=== PATIENT | female | born 1995 | race African-American/Black ===

== ENCOUNTER 2017-01-17 15:21 | Observation (INO) | payer OTHER ==
[~2017-01-17 15:21] MED LIST: IBUP-232 PO; PROM25SU8 PO
[2017-01-17] MEDS ORDERED: ACETAMINOPHEN 325 MG TAB PO ONE (16:15)
[2017-01-17] MEDS ORDERED: ONDANSETRON HCL 4 MG/2 ML VIAL IV ONE (16:15)
[2017-01-17] MEDS ORDERED: ONDANSETRON ODT 4 MG TAB PO ONE (16:30)
--- NOTE | 2017-01-17 16:30 | PD ---
HPI Chief Complaint Abdominal pain, vaginal spotting Date Seen: January 17, 2017 Time Seen: 16:10 Travel History International Travel<30 Days: No Contact w/Intl Traveler<30Days: No Known Affected Area: No History of Present Illness HPI Patient is a 21-year-old at 23 weeks and 2 days who presents with 1 day of progressively worsening right upper quadrant pain and vaginal spotting. Patient reports that she woke up this morning with right upper quadrant pain and some vaginal spotting. She laid down, and noticed that the pain seemed to be getting progressively worse. Patient reports that the pain is currently a 7 out of 10, but at its worst it was almost a 9 out of 10. Patient describes the pain as stabbing and radiating to her back and associated with some chest tightness. Patient reports that her KASIA of 05/14/17 is from an ultrasound performed 2 weeks ago when she presented to a hospital in [place], where they also diagnosed her with gallstones based on ultrasound. They recommended that she get an OB provider and a general surgeon referral. She has been unable to find an OB provider. She denies any contractions, leakage of fluid. She endorses movement. She also endorses some nausea, some orthostatic lightheadedness, toothache and associated headache. She denies any changes in her vision, swelling of her extremities, chest pain, shortness of breath, fever , chills, dysuria. Patient endorses nausea. Para: 3 : 5 Miscarriage: 1 History Past Medical History Narrative Medical Gallstones diagnosed on ultrasound 2 weeks ago. Obstetric History Obstetric History Patient reports that her first was delivered at 37 weeks via C- section because there was a cord around the neck that was restricting baby's oxygen supply with her contractions. She had another delivery at 37 weeks by C- section. And then another delivery at 34 weeks by for labor. She also had 1 miscarriage at 8 weeks. Past Surgical History Narrative Surgical x3 Surgical History: No Previous Surgery Family History Narrative Family History HTN and DM on both sides of her family Family History: Negative Social History Narrative Social History Pt reports living with her friend. Alcohol Use: No Tobacco Use: No Substance Abuse: No Allergies-Medications (Allergen,Severity, Reaction): Coded Allergies: Abilify (Verified Allergy, Unknown, VOMITING, 02/26/16) Home Meds Active Scripts Nitrofurantoin Monohydrate Macrocrystals (Macrobid)100 Mg [id number] Mg PO BID #12 CAP Ref 0 Prov:Peyton Cardenas MD R2 01/18/17 Ibuprofen (Motrin)600 Mg [id number] Mg PO QID #21 TAB GIVE WITH FOOD Prov:Leno Curtis MD 10/09/15 Promethazine Hcl 25 Mg Tab25 Mg PO Q6H PRN (NAUSEA OR VOMITING) #10 TAB FOR NAUSEA/VOMITING Prov:Leno Curtis MD 10/09/15 Review of Systems General / Constitutional: No: Fever, Chills HENT: Headaches, Dental Difficulties Cardiovascular: No: Chest Pain or Discomfort, Edema Respiratory: No: Short of Breath Gastrointestinal: Nausea, Abdominal Pain Genitourinary: Vaginal Bleeding, No: Dysuria Musculoskeletal: No: Cramping, Edema Physical Exam Narrative GENERAL: Well-nourished, well-developed patient. SKIN: Warm and dry. HEAD: Normocephalic and atraumatic. EYES: No scleral icterus. No injection or drainage. ENT: No nasal drainage noted. Mucous membranes pink. Airway patent. No erythema , flutuance, NECK: Supple, trachea midline. No JVD. CARDIOVASCULAR: Regular rate and rhythm without murmurs, gallops, or rubs. RESPIRATORY: Breath sounds equal bilaterally. No accessory muscle use. ABDOMEN/GI: Abdomen soft, non-tender, bowel sounds present, no rebound, no guarding Gravid to 23 weeks size GENITOURINARY: External Genitalia: intact and normal in appearance BUS glands: [-] Cervix: [-] Dilatation: [-] Effacement: [-] Station: [-] Presentation: [-] Membranes: [intact or ruptured] Uterine Contractions: [-] FHT's: Category: [-] Baseline: [-] Reactive: [-] Variability: [-] Decels: [-] EXTREMITIES: No cyanosis or edema. BACK: Nontender without obvious deformity. + right-sided CVA tenderness. NEUROLOGICAL: Awake and alert. Motor and sensory grossly within normal limits. Five out of 5 muscle strength in all muscle groups. Normal speech. Data Data Orders Vital Signs (Adult) .ON ADMISSION (01/17/17 16:15) ^ Labor Status (01/17/17 16:15) Urinalysis - C+S If Indicated (01/17/17 16:15) ^ Hydration (01/17/17 16:15) Acetaminophen (Tylenol) (01/17/17 16:15) Ondansetron Inj (Zofran Inj) (01/17/17 16:15) MDM Plan Patient is a 21-year-old at 23 weeks and 2 days who presents with 1 day of progressively worsening right upper quadrant pain and vaginal spotting. 1. Abdominal pain with associated nausea - differential diagnosis includes -induced cholestasis, pre-existing gallstones, pyelonephritis, round ligament pain Monitor vital signs heart rate reassuring in the 140s; re-checked with bedside US. noted to have bradycardia/decel's to FHR in 60's, then back to normal 120s-140s. Thus, will place in observation for monitoring overnight and to be see by MFM specialists in the morning. Monitor labor status Encourage by mouth hydration Tylenol 650 mg by mouth 1 Zofran 4 mg ODT 1 --UA remarkable for moderate leuk est, 6 WBCs, moderate bacteria, culture indicated; in addition to + right-sided CVA tenderness on exam, will treat likely pyelonephritis with Ceftriaxone 1g IV q24h 2. vaginal spotting - most likely physiologic Vaginal exam - closed. No previa on bedside US. DW Dr. Chandler Scripts Nitrofurantoin Monohydrate Macrocrystals (Macrobid)100 Mg [id number] Mg PO BID #12 CAP Ref 0 Prov:Peyton Cardenas MD R2 01/18/17 Destin Jamil MD R1 January 17, 2017 16:30
[2017-01-17 16:45] LABS: BACTERIA, URINE MOD /hpf; BLOOD, URINE NEG (NEG); COMMENT (UR) CULTURE INDICATED; CULTURE IF INDICATED CULTURE INDICATED; GLUCOSE,URINE NEG (NEG); HYALINE CAST, URINE 1 /lpf (RARE); KETONE, URINE NEG (NEG); NITRITE,URINE NEG (NEG); SQUAMOUS EPITHELIAL CELL URINE 17 /hpf (0-5); URINE COLOR YELLOW (YELLW/STRAW)
[2017-01-17] MEDS ORDERED: ACETAMINOPHEN 325 MG TAB PO PRN (17:45)
[2017-01-17] MEDS ORDERED: IBUPROFEN 600 MG TAB PO PRN (17:45)
[2017-01-17] MEDS ORDERED: ONDANSETRON HCL 4 MG/2 ML VIAL IV PRN (17:45)
[2017-01-17] MEDS ORDERED: oxyCODONE/ACETAMINOPHEN 5 MG/325 MG TAB PO PRN (17:45)
--- NOTE | 2017-01-17 17:54 | PD ---
HPI Chief Complaint abdominal pain Date Seen: January 17, 2017 Time Seen: 16:10 Travel History International Travel<30 Days: No Contact w/Intl Traveler<30Days: No Known Affected Area: No History of Present Illness HPI Patient is a 21-year-old at 23 weeks and 2 days who presents with 1 day of progressively worsening right upper quadrant pain and vaginal spotting. Patient reports that she woke up this morning with right upper quadrant pain and some vaginal spotting. She laid down, and noticed that the pain seemed to be getting progressively worse. Patient reports that the pain is currently a 7 out of 10, but at its worst it was almost a 9 out of 10. Patient describes the pain as stabbing and radiating to her back and associated with some chest tightness. Patient reports that her KASIA of 05/14/17 is from an ultrasound performed 2 weeks ago when she presented to a hospital in [place], where they also diagnosed her with gallstones based on ultrasound. They recommended that she get an OB provider and a general surgeon referral. She has been unable to find an OB provider. She denies any contractions, leakage of fluid. She endorses movement. She also endorses some nausea, some orthostatic lightheadedness, toothache and associated headache. She denies any changes in her vision, swelling of her extremities, chest pain, shortness of breath, fever , chills, dysuria. Patient endorses some nausea. Para: 3 : 5 Miscarriage: 1 History Past Medical History Narrative Medical Gallstones diagnosed on ultrasound 2 weeks ago. Obstetric History Obstetric History Patient reports that her first was delivered at 37 weeks via C- section because there was a cord around the neck that was restricting baby's oxygen supply with her contractions. She had another delivery at 37 weeks by C- section. And then another delivery at 34 weeks by for labor. She also had 1 miscarriage at 8 weeks. Past Surgical History Narrative Surgical x3 Family History Narrative Family History HTN and DM on both sides of her family Social History Narrative Social History Pt reports living with her friend. Alcohol Use: No Tobacco Use: No Substance Abuse: No Allergies-Medications (Allergen,Severity, Reaction): Coded Allergies: Abilify (Verified Allergy, Unknown, VOMITING, 02/26/16) Home Meds Active Scripts Ibuprofen (Motrin)600 Mg [id number] Mg PO QID #21 TAB GIVE WITH FOOD Prov:Leno Curtis MD 10/09/15 Promethazine Hcl 25 Mg Tab25 Mg PO Q6H PRN (NAUSEA OR VOMITING) #10 TAB FOR NAUSEA/VOMITING Prov:Leno Curtis MD 10/09/15 Review of Systems General / Constitutional: No: Fever, Chills, Other Eyes: No: Blurred Vision, Visual changes, Photophobia HENT: Headaches, Dental Difficulties, Lightheadedness (othrostatic) Cardiovascular: No: Chest Pain or Discomfort, Edema Respiratory: No: Short of Breath Gastrointestinal: Nausea, Abdominal Pain, No: Vomiting, Diarrhea Genitourinary: No: Dysuria Musculoskeletal: No: Cramping, Edema Neurologic: No: Headache Endocrine: No: Heat Intolerance, Cold Intolerance Physical Exam AF and VSS and wnl Narrative GENERAL: Well-nourished, well-developed patient. SKIN: Warm and dry. HEAD: Normocephalic and atraumatic. EYES: No scleral icterus. No injection or drainage. ENT: No nasal drainage noted. Mucous membranes pink. Airway patent. No erythema , flutuance, NECK: Supple, trachea midline. No JVD. CARDIOVASCULAR: Regular rate and rhythm without murmurs, gallops, or rubs. RESPIRATORY: Breath sounds equal bilaterally. No accessory muscle use. ABDOMEN/GI: Abdomen soft, non-tender, bowel sounds present, no rebound, no guarding Gravid to 23 weeks size GENITOURINARY: External Genitalia: intact and normal in appearance Cervix: [mid-position] Dilatation: [closed] Effacement: [thick] Membranes: [intact] Uterine Contractions: [none] FHT's: assessed by bedside US: showed intermittent, self-resolving bradycardia/ decel's to 60's bpm, then came back up to 120s to 140s. EXTREMITIES: No cyanosis or edema. BACK: Nontender without obvious deformity. + right-sided CVA tenderness. NEUROLOGICAL: Awake and alert. Motor and sensory grossly within normal limits. Five out of 5 muscle strength in all muscle groups. Normal speech. Data Data Vital Signs Reviewed: Yes Orders Vital Signs (Adult) .ON ADMISSION (01/17/17 16:15) ^ Labor Status (01/17/17 16:15) Urinalysis - C+S If Indicated (01/17/17 16:15) ^ Hydration (01/17/17 16:15) Acetaminophen (Tylenol) (01/17/17 16:15) Ondansetron Inj (Zofran Inj) (01/17/17 16:15) Ondansetron Odt (Zofran Odt) (01/17/17 16:30) Ob Poc Ultrasound (01/17/17 ) Urine Culture (01/17/17 15:40) Ob (2e) Additional Admit Info (01/17/17 17:10) Nitrofurantoin Monohyd Macrocr (Macrobid (01/17/17 18:00) Ceftriaxone Inj (Rocephin Inj) (01/17/17 18:00) Place In Observation (01/17/17 ) ^ Insert Iv (01/17/17 17:27) Diet Regular Basic (01/17/17 Dinner) Complete Blood Count With Diff (01/17/17 17:30) Comprehensive Metabolic Panel (01/17/17 17:30) Code Status (01/17/17 17:30) Vital Signs (Adult) .Per protocol (01/17/17 17:30) Activity Oob Ad Christine (01/17/17 17:30) Heart (01/17/17 17:30) Ob/Psych Drug Screen, Urine (01/17/17 17:34) Acetaminophen (Tylenol) (01/17/17 17:45) Ibuprofen (Motrin) (01/17/17 17:45) Oxycodone-Acetamin 5-325 Mg (Percocet (01/17/17 17:45) Oxycodone-Acetamin 5-325 Mg (Percocet (01/17/17 17:45) Ondansetron Inj (Zofran Inj) (01/17/17 17:45) Fentanyl Inj (Fentanyl Inj) (01/17/17 17:45) Labs Laboratory Tests Test 01/17/17 15:40 Urine Color YELLOW Urine Turbidity HAZY Urine pH 8.0 Urine Specific [place] 1.016 Urine Protein TRACE Urine Glucose (UA) NEG Urine Ketones NEG Urine Occult Blood NEG Urine Nitrite NEG Urine Bilirubin NEG Urine Urobilinogen LESS THAN 2.0 Urine Leukocyte Esterase MOD Urine RBC 1 Urine WBC 6 Urine Squamous Epithelial 17 Cells Urine Bacteria MOD Urine Hyaline Casts 1 Microscopic Urinalysis Comment CULTURE INDICATED Date/Time Procedure Status Source Growth 01/17/17 15:40 Urine Culture Received Urine Clean Catch Pending MDM Plan Patient is a 21-year-old at 23 weeks and 2 days who presents with 1 day of progressively worsening right upper quadrant pain and vaginal spotting. 1. Abdominal pain with associated nausea - differential diagnosis includes -induced cholestasis, pre-existing gallstones, pyelonephritis, round ligament pain Monitor vital signs heart rate reassuring in the 140s; re-checked with bedside US. noted to have bradycardia/decel's to FHR in 60's, then back to normal 120s-140s. Thus, will place in observation for monitoring overnight and to be see by MFM specialists in the morning. Monitor labor status Encourage by mouth hydration Tylenol 650 mg by mouth 1 Zofran 4 mg ODT 1 --UA remarkable for moderate leuk est, 6 WBCs, moderate bacteria, culture indicated; in addition to + right-sided CVA tenderness on exam, will treat likely pyelonephritis with Ceftriaxone 1g IV q24h, which is another indication for observation overnight. 2. vaginal spotting - most likely physiologic Vaginal exam - closed. No previa on bedside US. DW Dr. Ramesh Jamil,Destin Loving MD R1 January 17, 2017 17:54
--- NOTE | 2017-01-17 17:55 | HHI.HP ---
History & Physical H&P HPI HPI Chief Complaint Abdominal pain, vaginal spotting Date Seen: January 17, 2017 Time Seen: 16:10 Travel History International Travel<30 Days: No Contact w/Intl Traveler<30Days: No Known Affected Area: No History of Present Illness HPI Patient is a 21-year-old at 23 weeks and 2 days who presents with 1 day of progressively worsening right upper quadrant pain and vaginal spotting. Patient reports that she woke up this morning with right upper quadrant pain and some vaginal spotting. She laid down, and noticed that the pain seemed to be getting progressively worse. Patient reports that the pain is currently a 7 out of 10, but at its worst it was almost a 9 out of 10. Patient describes the pain as stabbing and radiating to her back and associated with some chest tightness. Patient reports that her KASIA of 05/14/17 is from an ultrasound performed 2 weeks ago when she presented to a hospital in [place], where they also diagnosed her with gallstones based on ultrasound. They recommended that she get an OB provider and a general surgeon referral. She has been unable to find an OB provider. She denies any contractions, leakage of fluid. She endorses movement. She also endorses some nausea, some orthostatic lightheadedness, toothache and associated headache. She denies any changes in her vision, swelling of her extremities, chest pain, shortness of breath, fever , chills, dysuria. Patient endorses nausea. Para: 3 : 5 Miscarriage: 1 History (Limited) History Past Medical History Narrative Medical Gallstones diagnosed on ultrasound 2 weeks ago. Obstetric History Obstetric History Patient reports that her first was delivered at 37 weeks via C- section because there was a cord around the neck that was restricting baby's oxygen supply with her contractions. She had another delivery at 37 weeks by C- section. And then another delivery at 34 weeks by for labor. She also had 1 miscarriage at 8 weeks. Past Surgical History Narrative Surgical x3 Surgical History: No Previous Surgery Family History Narrative Family History HTN and DM on both sides of her family Family History: Negative Social History Narrative Social History Pt reports living with her friend. Alcohol Use: No Tobacco Use: No Substance Abuse: No Allergies-Medications Allergies-Medications (Allergen,Severity, Reaction): Coded Allergies: Abilify (Verified Allergy, Unknown, VOMITING, 02/26/16) Home Meds Active Scripts Ibuprofen (Motrin)600 Mg [id number] Mg PO QID #21 TAB GIVE WITH FOOD Prov:Leno Curtis MD 10/09/15 Promethazine Hcl 25 Mg Tab25 Mg PO Q6H PRN (NAUSEA OR VOMITING) #10 TAB FOR NAUSEA/VOMITING Prov:Leno Curtis MD 10/09/15 ROS Review of Systems General / Constitutional: No: Fever, Chills HENT: Headaches, Dental Difficulties Cardiovascular: No: Chest Pain or Discomfort, Edema Respiratory: No: Short of Breath Gastrointestinal: Nausea, Abdominal Pain Genitourinary: Vaginal Bleeding, No: Dysuria Musculoskeletal: No: Cramping, Edema Physical Exam Physical Exam Narrative GENERAL: Well-nourished, well-developed patient. SKIN: Warm and dry. HEAD: Normocephalic and atraumatic. EYES: No scleral icterus. No injection or drainage. ENT: No nasal drainage noted. Mucous membranes pink. Airway patent. No erythema , flutuance, NECK: Supple, trachea midline. No JVD. CARDIOVASCULAR: Regular rate and rhythm without murmurs, gallops, or rubs. RESPIRATORY: Breath sounds equal bilaterally. No accessory muscle use. ABDOMEN/GI: Abdomen soft, non-tender, bowel sounds present, no rebound, no guarding Gravid to 23 weeks size GENITOURINARY: External Genitalia: intact and normal in appearance Cervix: [mid-position] Dilatation: [closed] Effacement: [thick] Membranes: [intact] Uterine Contractions: [none] FHT's: assessed by bedside US: showed intermittent, self-resolving bradycardia/ decel's to 60's bpm, then came back up to 120s to 140s. EXTREMITIES: No cyanosis or edema. BACK: Nontender without obvious deformity. + right-sided CVA tenderness. NEUROLOGICAL: Awake and alert. Motor and sensory grossly within normal limits. Five out of 5 muscle strength in all muscle groups. Normal speech. Data Data Data Orders Vital Signs (Adult) .ON ADMISSION (01/17/17 16:15) ^ Labor Status (01/17/17 16:15) Urinalysis - C+S If Indicated (01/17/17 16:15) ^ Hydration (01/17/17 16:15) Acetaminophen (Tylenol) (01/17/17 16:15) Ondansetron Inj (Zofran Inj) (01/17/17 16:15) MDM MDM Plan Patient is a 21-year-old at 23 weeks and 2 days who presents with 1 day of progressively worsening right upper quadrant pain and vaginal spotting. 1. Abdominal pain with associated nausea. Treating pyelonephritis based on right -sided CVA tenderness and urinalysis concerning for infection. Placed in observation, regular basic diet, out of bed ad elijah. Monitor vital signs every 4 hours Monitor labor status Encourage by mouth hydration; normal saline IV at 125 mL per hour Zofran 4 mg IV every 6 hours when necessary for nausea or vomiting --UA remarkable for moderate leuk est, 6 WBCs, moderate bacteria, culture indicated; in addition to + right-sided CVA tenderness on exam, will treat likely pyelonephritis with: Ceftriaxone 1g IV q24h Follow urine culture CBC, CMP, OB/psych drug screen Pain control as below: * Tylenol 650 mg by mouth every 4 hours when necessary for pain 1-2 * Percocet 5-325 mg 1 tab by mouth every 4 hours when necessary for pain 3-5 * Percocet 5-325 mg 2 tab by mouth every 4 hours when necessary for pain 6-10 * Fentanyl 50 g IV push every one hours when necessary for breakthrough pain 2. Nonreassuring heart rate: heart rate with bedside US was noted to have bradycardia/decel's to FHR in 60's bpm, then back to normal 120s-140s. Thus, will place in observation for monitoring overnight and to be seen by MFM specialists in the morning. Monitor heart rate at least every 4 hours OB ultrasound tomorrow morning 3. vaginal spotting - most likely physiologic Vaginal exam - closed. No previa on bedside US. SDW Dr. Ramesh Jamil,Destin Loving MD R1 January 17, 2017 17:55
[2017-01-17] MEDS ORDERED: NITROFURANTOIN MONOHYD MACROCR 100 MG CAP PO SCH (18:00)
[2017-01-17] MEDS ORDERED: cefTRIAXone INJ 1,000 MG in SODIUM CHLORIDE 0.9% INJ 100 ML IV SCH (18:00)
[2017-01-17] MEDS: oxyCODONE/ACETAMINOPHEN 5 MG/325 MG TAB PO PRN (18:01)
[2017-01-17 18:58] LABS: AUTOMATED NEUTROPHIL # 7.6 TH/MM3 (1.8-7.7); BASOPHIL % 0.4 % (0.0-2.0); EOSINOPHIL # 0.2 TH/MM3 (0-0.4); EOSINOPHIL % 2.2 % (0.0-4.0); HEMATOCRIT 35.3 % (35.0-46.0); HEMO FLAGS DIFF FINAL; LYMPH % 23.5 % (9.0-44.0); LYMPHOCYTE # 2.7 TH/MM3 (1.0-4.8); MEAN CORPUSCULAR HEMOGLOBIN 28.9 PG (27.0-34.0); MEAN CORPUSCULAR HGB CONC 33.2 % (32.0-36.0); MONO % 6.7 % (0.0-8.0); NEUT % 67.2 % (16.0-70.0); PLATELET COUNT 270 TH/MM3 (150-450); RED BLOOD COUNT 4.06 MIL/MM3 (4.00-5.30); RED CELL DISTRIBUTION WIDTH 12.9 % (11.6-17.2); WHITE BLOOD COUNT 11.3 TH/MM3 (4.0-11.0)
[2017-01-17] MEDS ORDERED: SODIUM CHLOR 0.9% 1000 ML INJ 1,000 ML IV SCH (19:00)
[2017-01-17 19:21] LABS: ALT (GPT) 29 U/L (10-53); ANION GAP 10 MEQ/L (5-15); AST (GOT) 21 U/L (15-37); BICARBONATE 25.8 MEQ/L (21.0-32.0); BLOOD UREA NITROGEN 10 MG/DL (7-18); CHLORIDE 102 MEQ/L (98-107); GLOMERULAR FILTRATION RATE 70 ML/MIN (>89); POTASSIUM 3.7 MEQ/L (3.5-5.1); SODIUM (NA) 138 MEQ/L (136-145)
[2017-01-17 19:23] LABS: ALKALINE PHOSPHATASE 51 U/L (45-117); TOTAL BILIRUBIN ADULT 0.2 MG/DL (0.2-1.0)
--- NOTE | 2017-01-17 19:29 | PD ---
History of Present Illness Date Seen: January 17, 2017 Time Seen: 17:00 History of Present Illness This patient is 21-year-old black female PCS [3] now at 23 weeks with no care on a regular basis is entering with right upper quadrant pain and back pain spotting, nitrite bleeding or leakage of fluid. Baby is active she states she has a ultrasound done several weeks ago that showed gallstones also an obstetric ultrasound same time with does cannot get heart tones with the toco, no contractions are seen on the contraction toco. I looked the ultrasound just to assess the fetus in some form or fashion and I was able to get an ultrasound at that time showed a fetus in vertex presentation at 23 weeks 3 days size, 567 gm, adequate amniotic fluid and anterior placenta, baby is active, is a male fetus but on visualizing the thorax and heart a four -chamber heart easily seen and it had a normal rate of 120 to 130 and then sporadically would drop down to the 60s or 70s for just a few seconds and then back up to the 120-130s, and it did this over and over with sporadic dropping bradycardic episode and then back up to normal and no contractions noted any time during this. On exam the patient has minimal pain to palpation her cervix is closed, urinalysis was minimally positive but positive nonetheless I do not feel comfortable sending the patient home after observing the heart rate become bradycardic periodically however I didn't feel the need to deliver this 500 g fetus for this problem at this time so it was decided to admit the patient and will periodically scanned the baby's heart tonight and tomorrow the perinatology service is here we'll attempt to a level II scan and give recommendations as to what may need to be done for her patient was seen with the family medicine and turned who did an exam and put her orders in Josh Chandler II, MD January 17, 2017 19:29
[2017-01-17 19:46] VITALS: BP 98/51; PULSE 66
[2017-01-17 19:53] VITALS: BP 103/57; PULSE 73
[2017-01-17 20:00] VITALS: RESP 18; TEMP 98.1
[2017-01-17 20:03] LABS: AMPHETAMINE, URINE NEG (NEG); BARBITURATES, URINE NEG (NEG)
[2017-01-17 20:28] LABS: COCAINE, URINE POS (NEG)
--- NOTE | 2017-01-17 22:21 | PD.OB.ANTE ---
Subjective Interval History US used to view FHR for several minutes -- normal rate of 130-140 noted no episodes of bradycardia seen , fetus very active Objective Lab & Micro Results Test 01/17/17 01/17/17 15:40 18:15 Urine Color YELLOW Urine Turbidity HAZY Urine pH 8.0 Urine Specific [place] 1.016 Urine Protein TRACE mg/dL Urine Glucose (UA) NEG mg/dL Urine Ketones NEG mg/dL Urine Occult Blood NEG Urine Nitrite NEG Urine Bilirubin NEG Urine Urobilinogen LESS THAN 2.0 MG/DL Urine Leukocyte Esterase MOD Urine RBC 1 /hpf Urine WBC 6 /hpf Urine Squamous Epithelial 17 /hpf Cells Urine Bacteria MOD /hpf Urine Hyaline Casts 1 /lpf Microscopic Urinalysis Comment CULTURE INDICATED Urine Opiates Screen NEG Urine Barbiturates Screen NEG Urine Amphetamines Screen NEG Urine Benzodiazepines Screen NEG Urine Cocaine Screen POS Urine Cannabinoids Screen POS White Blood Count 11.3 TH/MM3 Red Blood Count 4.06 MIL/MM3 Hemoglobin 11.7 GM/DL Hematocrit 35.3 % Mean Corpuscular Volume 87.0 FL Mean Corpuscular Hemoglobin 28.9 PG Mean Corpuscular Hemoglobin 33.2 % Concent Red Cell Distribution Width 12.9 % Platelet Count 270 TH/MM3 Mean Platelet Volume 9.5 FL Neutrophils (%) (Auto) 67.2 % Lymphocytes (%) (Auto) 23.5 % Monocytes (%) (Auto) 6.7 % Eosinophils (%) (Auto) 2.2 % Basophils (%) (Auto) 0.4 % Neutrophils # (Auto) 7.6 TH/MM3 Lymphocytes # (Auto) 2.7 TH/MM3 Monocytes # (Auto) 0.8 TH/MM3 Eosinophils # (Auto) 0.2 TH/MM3 Basophils # (Auto) 0.0 TH/MM3 CBC Comment DIFF FINAL Differential Comment Sodium Level 138 MEQ/L Potassium Level 3.7 MEQ/L Chloride Level 102 MEQ/L Carbon Dioxide Level 25.8 MEQ/L Anion Gap 10 MEQ/L Blood Urea Nitrogen 10 MG/DL Creatinine 1.17 MG/DL Estimat Glomerular Filtration 70 ML/MIN Rate Random Glucose 60 MG/DL Calcium Level 9.2 MG/DL Total Bilirubin 0.2 MG/DL Aspartate Amino Transf 21 U/L (AST/SGOT) Alanine Aminotransferase 29 U/L (ALT/SGPT) Alkaline Phosphatase 51 U/L Total Protein 6.7 GM/DL Albumin 3.1 GM/DL Date/Time Procedure Status Source Growth 01/17/17 15:40 Urine Culture Received Urine Clean Catch Pending Physical Exam GENERAL: Well-nourished, well-developed patient. CARDIOVASCULAR: Regular rate and rhythm without murmurs, gallops, or rubs. RESPIRATORY: Breath sounds equal bilaterally. No accessory muscle use. ABDOMEN/GI: Abdomen soft, non-tender. Fundus: [-] GENITOURINARY: External Genitalia: intact and normal in appearance Cervix: [-] Dilatation: [-] Effacement: [-] Station: [-] Presentation: [-] Membranes: [-] Uterine Contractions: [-] FHT's: Category: [-] Baseline: [-] Reactive: [-] Variability: [-] Decels: [-] EXTREMITIES: No cyanosis or edema, non-tender, without signs of DVT. Josh Chandler II, MD January 17, 2017 22:21
[2017-01-18] MEDS: oxyCODONE/ACETAMINOPHEN 5 MG/325 MG TAB PO PRN ×2 (08:13→12:48)
[2017-01-18 08:23] VITALS: BP 98/51; PULSE 68
[2017-01-18 08:26] VITALS: RESP 17; TEMP 98
--- NOTE | 2017-01-18 08:54 | PD.OB.ANTE ---
Subjective Diagnosis: (1) Pyelonephritis (2) Pyelonephritis affecting (3) Pyelonephritis affecting , antepartum (4) bradycardia, antepartum condition or complication Interval History Pt has been AF with VSS. She reports some improvement in her symptoms, but she still feels a sick and some pain. She has been eating and drinking. She had some nausea that was controlled well by medication. She denies any fever, chills , dysuria, chest pain, dyspnea. FHR reassuring this morning. Dr. Chandler performed another bedside US last night and watched heart rate for a few minutes with no decel's or bradycardia observed. Antepartum ROS: Reports: movement normal, Denies: New complaints, Loss of fluid, Vaginal bleeding, Contractions Objective Vital Signs Vital Signs Date Time Temp Pulse Resp B/P Pulse Ox O2 Delivery O2 Flow Rate FiO2 01/18/17 08:26 17 01/18/17 08:26 98.0 01/18/17 08:23 68 98/51 01/17/17 20:00 98.1 18 01/17/17 19:53 73 103/57 01/17/17 19:46 66 98/51 Lab & Micro Results Test 01/17/17 01/17/17 15:40 18:15 Urine Color YELLOW Urine Turbidity HAZY Urine pH 8.0 Urine Specific [place] 1.016 Urine Protein TRACE mg/dL Urine Glucose (UA) NEG mg/dL Urine Ketones NEG mg/dL Urine Occult Blood NEG Urine Nitrite NEG Urine Bilirubin NEG Urine Urobilinogen LESS THAN 2.0 MG/DL Urine Leukocyte Esterase MOD Urine RBC 1 /hpf Urine WBC 6 /hpf Urine Squamous Epithelial 17 /hpf Cells Urine Bacteria MOD /hpf Urine Hyaline Casts 1 /lpf Microscopic Urinalysis Comment CULTURE INDICATED Urine Opiates Screen NEG Urine Barbiturates Screen NEG Urine Amphetamines Screen NEG Urine Benzodiazepines Screen NEG Urine Cocaine Screen POS Urine Cannabinoids Screen POS White Blood Count 11.3 TH/MM3 Red Blood Count 4.06 MIL/MM3 Hemoglobin 11.7 GM/DL Hematocrit 35.3 % Mean Corpuscular Volume 87.0 FL Mean Corpuscular Hemoglobin 28.9 PG Mean Corpuscular Hemoglobin 33.2 % Concent Red Cell Distribution Width 12.9 % Platelet Count 270 TH/MM3 Mean Platelet Volume 9.5 FL Neutrophils (%) (Auto) 67.2 % Lymphocytes (%) (Auto) 23.5 % Monocytes (%) (Auto) 6.7 % Eosinophils (%) (Auto) 2.2 % Basophils (%) (Auto) 0.4 % Neutrophils # (Auto) 7.6 TH/MM3 Lymphocytes # (Auto) 2.7 TH/MM3 Monocytes # (Auto) 0.8 TH/MM3 Eosinophils # (Auto) 0.2 TH/MM3 Basophils # (Auto) 0.0 TH/MM3 CBC Comment DIFF FINAL Differential Comment Sodium Level 138 MEQ/L Potassium Level 3.7 MEQ/L Chloride Level 102 MEQ/L Carbon Dioxide Level 25.8 MEQ/L Anion Gap 10 MEQ/L Blood Urea Nitrogen 10 MG/DL Creatinine 1.17 MG/DL Estimat Glomerular Filtration 70 ML/MIN Rate Random Glucose 60 MG/DL Calcium Level 9.2 MG/DL Total Bilirubin 0.2 MG/DL Aspartate Amino Transf 21 U/L (AST/SGOT) Alanine Aminotransferase 29 U/L (ALT/SGPT) Alkaline Phosphatase 51 U/L Total Protein 6.7 GM/DL Albumin 3.1 GM/DL Date/Time Procedure Status Source Growth 01/17/17 15:40 Urine Culture Received Urine Clean Catch Pending Physical Exam GENERAL: Well-nourished, well-developed patient. CARDIOVASCULAR: Regular rate and rhythm without murmurs, gallops, or rubs. RESPIRATORY: Breath sounds equal bilaterally. No accessory muscle use. ABDOMEN/GI: Abdomen soft, non-tender. Fundus: [c/w 23 week gestation] FHT's: FHR intermittently on monitor Category: [Category I] Baseline: [140 bpm] Reactive: [reactive] Variability: [moderate] Decels: [none] EXTREMITIES: No cyanosis or edema, non-tender, without signs of DVT. Assessment and Plan Problem List: (1) Pyelonephritis Status: Acute (2) Pyelonephritis affecting Status: Acute (3) Pyelonephritis affecting , antepartum Status: Acute (4) bradycardia, antepartum condition or complication Status: Acute Assessment and Plan Patient is a 21-year-old at 23 weeks and 3 days who presented with 1 days of progressively worsening right upper quadrant pain. This pain is still present but improving. 1. Abdominal pain with associated nausea. Treating pyelonephritis based on right -sided CVA tenderness and urinalysis concerning for infection. Placed in observation, regular basic diet, out of bed ad elijah. Monitor vital signs every 4 hours Monitor labor status Encourage by mouth hydration; normal saline IV at 125 mL per hour. Continue today given pt's decreased PO intake. Zofran 4 mg IV every 6 hours when necessary for nausea or vomiting --UA remarkable for moderate leuk est, 6 WBCs, moderate bacteria, culture indicated; in addition to + right-sided CVA tenderness on exam, treating likely pyelonephritis with: Ceftriaxone 1g IV q24h. Plan to discharge on Macrobid 100mg po bid for 7 days. Urine culture pending CBC, CMP, OB/psych drug screen. WBC 11.3, Cr 1.17, + for cocaine and cannabis. Continue abx and IVF as above. Recommend OB follow-up. Pain control as below: * Tylenol 650 mg by mouth every 4 hours when necessary for pain 1-2 * Percocet 5-325 mg 1 tab by mouth every 4 hours when necessary for pain 3-5 * Percocet 5-325 mg 2 tab by mouth every 4 hours when necessary for pain 6-10 * Fentanyl 50 g IV push every one hours when necessary for breakthrough pain 2. Nonreassuring heart rate: heart rate with bedside US was noted to have bradycardia/decel's to FHR in 60's bpm, then back to normal 120s-140s. Thus, will place in observation for monitoring overnight and to be seen by MFM specialists in the morning. Dr. Chandler performed another bedside US last night and watched heart rate for a few minutes with no decel's or bradycardia observed. Monitor heart rate at least every 4 hours OB ultrasound this afternoon DW Destin Dallas MD R1 January 18, 2017 08:54
[2017-01-18 11:25] VITALS: RESP 19
[2017-01-18 11:27] VITALS: BP 109/50; PULSE 77
[2017-01-18 12:35] VITALS: BP 94/43; PULSE 67; RESP 18; TEMP 98.3
[2017-01-18] MEDS ORDERED: MACR100C2 PO (12:52)
--- NOTE | 2017-01-18 12:54 | HHI.DCPOC ---
Discharge Care Plan Diagnosis: (1) UTI (urinary tract infection) during (2) bradycardia before the onset of labor Report Symptoms to Your Doctor -Temperate above 100.5 degrees -Redness, of incision or excessive or foul smelling drainage -Unusual pain or calf pain -Increased vaginal bleeding -Painful or difficulty urinating -Feelings of extreme sadness or anxiety after 2 weeks Goals to Promote Your Health * To prevent worsening of your condition and complications * To maintain your health at the optimal level Directions to Meet Your Goals Take your medications as prescribed Follow your dietary instruction Follow activity as directed Ensure plenty of rest for recovery Drink fluids for hydration Keep your appointments as scheduled Take your immunizations and boosters as scheduled If your symptoms worsen call your PCP, if no PCP go to Urgent Care Center or Emergency Room Smoking is Dangerous to Your Health. Avoid second hand smoke Call the 24-hour crisis hotline for domestic abuse at Peyton Cardenas MD R2 January 18, 2017 12:54
[2017-01-20 16:14] LABS: BATH SALTS (MDPV) UR NEG (NEG); ECSTASY (MDMA) UR NEG (NEG); GABAPENTIN UR NEG (NEG); HEROIN (6-ACETYLMORPHINE) UR NEG (NEG); HYDROMORPHONE U NEG (NEG); K2 SPICE UR NEG (NEG); OBMETHADONE UR NEG (NEG); OXYCODONE (PERCODAN) NEG (NEG); PHENCYCLIDINE URINE NEG (NEG)
== END 2017-01-18 13:36 | disposition home or self-care (01) ==
LOC: HOBED 15:21 → H2EA 17:14
PROVIDERS: ADMIT Obstetrics & Gynecology Maternal & Fetal Medicine; ATTEND Obstetrics & Gynecology Maternal & Fetal Medicine
DX: O26.852 Spotting complicating pregnancy, second trimester (principal); O26.892 Other specified pregnancy related conditions, second trimester; R10.11 Right upper quadrant pain; R07.89 Other chest pain; R42 Dizziness and giddiness; R51 Headache; O99.612 Diseases of the digestive system complicating pregnancy, second trimester; K08.89 Other specified disorders of teeth and supporting structures; O23.02 Infections of kidney in pregnancy, second trimester; O09.212 Supervision of pregnancy with history of pre-term labor, second trimester; Z3A.23 23 weeks gestation of pregnancy
CPT/HCPCS: 76805; 80053; 80307; 81001; 85025; 87086; 99285; G0378; G0481; J0696; J2405; J7030

== ENCOUNTER 2017-01-24 12:52 | Emergency (ER) | payer OTHER ==
[~2017-01-24 12:52] MED LIST changes: +MACR100C2 PO
[2017-01-24] MEDS ORDERED: LACTATED RINGER'S 1000 ML INJ 1,000 ML IV ONE (13:30)
[2017-01-24] MEDS ORDERED: ACETAMINOPHEN 325 MG TAB PO ONE (13:30)
--- NOTE | 2017-01-24 13:37 | PD ---
HPI Chief Complaint Nausea and vomiting. Date Seen: Jan 24, 2017 (Stephany Lovelace MD R2) Travel History International Travel<30 Days: No Contact w/Intl Traveler<30Days: No (Stephany Lovelace MD R2) History of Present Illness HPI Patient is a 21 year old at 23-2/7 weeks gestation who presents today for nausea, vomiting, and diarrhea. Symptoms started 2 days ago and have been progressively worsening. She also notes a pain in her right side starts in her right upper quadrant and radiates to her back. She also notes burning with urination and vaginal spotting. She denies any vaginal discharge, gush or leaking of fluid. Positive movement. She denies any fever. She tried taking Tylenol for pain but can keep it down. She has not been able to eat or drink for the past 2 days. Of note, she was recently admitted overnight for possible pyelonephritis and was treated with IV Rocephin and sent home with 10 days of Macrobid. She has not had any new sexual partners. care with Dr. Jamil. (Stephany Lovelace MD R2) History Past Medical History Medical History: Denies Significant Hx (Stephany Lovelace MD R2) Obstetric History Obstetric History s/p x 3 First at 37 weeks gestation for indication Repeat C-sections x 2, one at 37 weeks gestation and one at 34 weeks gestation for labor 1 spontaneous at 8 weeks gestation (Stephany Lovelace MD R2) Past Surgical History Narrative Surgical x 3 (Stephany Lovelace MD R2) Family History Narrative Family History Family history of DM type 2 and HTN (Stephany Lovelace MD R2) Social History Alcohol Use: No Tobacco Use: No Substance Abuse: No (Stephany Lovelace MD R2) Allergies-Medications (Allergen,Severity, Reaction): Coded Allergies: Abilify (Verified Allergy, Unknown, VOMITING, 02/26/16) Home Meds Active Scripts Metronidazole 500 Mg [id number] Mg PO BID #14 TAB Ref 0 Prov:Stephany Lovelace MD R2 01/24/17 Discontinued Scripts Nitrofurantoin Monohydrate Macrocrystals (Macrobid)100 Mg [id number] Mg PO BID #12 CAP Ref 0 Prov:Peyton Cardenas MD R2 01/18/17 Ibuprofen (Motrin)600 Mg [id number] Mg PO QID #21 TAB GIVE WITH FOOD Prov:Leno Curtis MD 10/09/15 Promethazine Hcl 25 Mg Tab25 Mg PO Q6H PRN (NAUSEA OR VOMITING) #10 TAB FOR NAUSEA/VOMITING Prov:Leno Curtis MD 10/09/15 Review of Systems Except as stated in HPI: all other systems reviewed are Neg General / Constitutional: No: Fever, Chills Eyes: No: Blurred Vision, Visual changes HENT: No: Headaches Cardiovascular: No: Chest Pain or Discomfort Respiratory: No: Short of Breath Gastrointestinal: Nausea, Vomiting, Diarrhea, Abdominal Pain Genitourinary: Dysuria, Vaginal Bleeding (spotting), No: Hematuria, Pelvic Pain, Discharge Musculoskeletal: No: Edema Neurologic: No: Headache Psychiatric: No: Substance Abuse (Stephany Lovelace MD R2) Physical Exam Narrative GENERAL: Well-nourished, well-developed patient. SKIN: Warm and dry. HEAD: Normocephalic and atraumatic. EYES: No scleral icterus. No injection or drainage. ENT: No nasal drainage noted. Mucous membranes pink. Airway patent. NECK: Supple, trachea midline. No JVD. CARDIOVASCULAR: Regular rate and rhythm without murmurs, gallops, or rubs. RESPIRATORY: Breath sounds equal bilaterally. No accessory muscle use. ABDOMEN/GI: Abdomen soft, tender to palpation in RUQ, bowel sounds present, no rebound, no guarding. No suprapubic tenderness. Gravid to 23 weeks size GENITOURINARY: External Genitalia: intact and normal in appearance BUS glands: normal Cervix: posterior Dilatation: 0 Effacement: 0 Station: -3 Presentation: vertex Membranes: intact Uterine Contractions: none FHT's: 150 Speculum Exam: With pole sander operator present and the patient in the lithotomy position, external genitalia inspected and found to be free of abnormality. A standard plastic Graves speculum was lightly lubricated and gently inserted. The cervix was manipulated into view and found to be free of inflammation. No signs infection. Moderate amount of thick, greenish tinged white, foul smelling discharge. No bleeding. EXTREMITIES: No cyanosis or edema. BACK: Nontender without obvious deformity. Right CVA tenderness. NEUROLOGICAL: Awake and alert. Motor and sensory grossly within normal limits. Normal speech. (Stephany Lovelace MD R2) Data Data Vital Signs Reviewed: Yes Orders Vital Signs (Adult) .ON ADMISSION (01/24/17 13:26) ^ Labor Status (01/24/17:) Urinalysis - C+S If Indicated (01/24/17 13:) ^ Hydration (01/24/17:) Cbc No Diff, Includes Plts (01/24/17:) Comprehensive Metabolic Panel (01/24/17:) Acetaminophen (Tylenol) (01/24/17 13:30) Lactated Ringer's 1000 Ml Inj (Lr 1000 M (01/24/17 13:30) (Stephany Lovelace MD R2) MDM Medical Record Reviewed: Yes Narrative Course / MDM 21 year old at 23-2/7 weeks gestation. 1. IUP- FHT reassuring, good movement. 2. Nausea/vomiting/diarrhea- ddx includes gastroenteritis, pyelonephritis, cholecystitis, dehydration Obtain CBC, CMP, and UA for further evaluation. Will give 1L LR bolus for hydration. Zofran PRN nausea and Tylenol PRN pain. 3. Vaginal Spotting- foul smelling greenish tinged discharge noted on exam, will obtain wet prep and GC and chlamydia PCR. dw Dr. Calloway Addendum: CBC, CMP, UA wnl Wet prep significant for BV- will treat with Metronidazole 500mg PO BID x 7 days Tyelnol not improving RUQ pain, will obtain RUQ US for pain and give Lortab 5- 325mg PO once. GC and Chlamydia negative. Patient tolerating PO intake. RUQ US negative. Discharge to home. Follow-up with Dr. Jamil. (Stephany Lovelace MD R2) Attending Attestation The exam, history, and the medical decision-making described in the above note were completed with the assistance of the resident provider. I reviewed and agree with the findings presented. I attest that I had a [id number] encounter with the patient on the same day, and personally performed and documented my assessment and findings in the medical record. (Lianet Calloway MD) Diagnosis Diagnosis: Primary Impression: Bacterial vaginosis Additional Impression: Back pain affecting in second trimester Disposition: 01 DISCHARGE HOME Condition: Stable Scripts Metronidazole 500 Mg [id number] Mg PO BID #14 TAB Ref 0 Prov:Stephany Lovelace MD R2 01/24/17 Stephany Lovelace MD R2 Jan 24, 2017 13:37 Lianet Calloway MD Jan 24, 2017 17:42
[2017-01-24] MEDS ORDERED: ONDANSETRON HCL 4 MG/2 ML VIAL IV ONE (13:45)
[2017-01-24 14:13] LABS: HEMATOCRIT 33.3 % (35.0-46.0); MEAN CELL VOLUME 87.7 FL (80.0-100.0); MEAN CORPUSCULAR HEMOGLOBIN 29.5 PG (27.0-34.0); MEAN CORPUSCULAR HGB CONC 33.6 % (32.0-36.0); PLATELET COUNT 286 TH/MM3 (150-450); REVIEW FLAG FINAL; WHITE BLOOD COUNT 8.9 TH/MM3 (4.0-11.0)
[2017-01-24 14:21] LABS: BACTERIA, URINE FEW /hpf; BLOOD, URINE NEG (NEG); COMMENT (UR) CULT NOT INDICATED; CULTURE IF INDICATED CULT NOT INDICATED; GLUCOSE,URINE NEG (NEG); KETONE, URINE 10 mg/dL (NEG); MUCUS URINE FEW /lpf (OCC); NITRITE,URINE NEG (NEG); SQUAMOUS EPITHELIAL CELL URINE 17 /hpf (0-5); URINE COLOR YELLOW (YELLW/STRAW)
[2017-01-24 14:27] LABS: ALT (GPT) 24 U/L (10-53); ANION GAP 9 MEQ/L (5-15); AST (GOT) 21 U/L (15-37); BICARBONATE 21.8 MEQ/L (21.0-32.0); BLOOD UREA NITROGEN 10 MG/DL (7-18); CHLORIDE 106 MEQ/L (98-107); GLOMERULAR FILTRATION RATE 83 ML/MIN (>89); SODIUM (NA) 137 MEQ/L (136-145)
[2017-01-24 14:30] LABS: ALKALINE PHOSPHATASE 54 U/L (45-117); TOTAL BILIRUBIN ADULT 0.3 MG/DL (0.2-1.0)
[2017-01-24] MEDS ORDERED: METR500T10 PO (14:52)
[2017-01-24] MEDS ORDERED: ACETAMINOPHEN/HYDROcodone 325 MG/5 MG TAB PO ONE (15:15)
[2017-01-24 16:04] LABS: CHLAMYDIA PCR NOT DETECTED (NOT DETECT); NEISSERIA PCR NOT DETECTED (NOT DETECT)
[2017-01-24 17:07] VITALS: BP 113/52; PULSE 66
[2017-01-24 17:15] VITALS: RESP 16; TEMP 98.7
--- NOTE | 2017-01-24 17:36 | RADRPT ---
EXAM DATE/TIME: 01/24/2017 16:45 [facility] COMPARISON: No previous studies available for comparison. INDICATIONS : Right upper quadrant pain. MEDICAL HISTORY : . Bipolar disorder. SURGICAL HISTORY : section. ENCOUNTER: Initial ACUITY: 3 days PAIN SCORE: 8/10 LOCATION: Right upper quadrant MEASUREMENTS: LIVER: 13.6 cm length COMMON DUCT: 2 mm RIGHT KIDNEY: 8.8 x 5.2 x 3.5 cm FINDINGS: LIVER: Normal echotexture without focal lesion or ductal dilatation. COMMON DUCT: No intraluminal mass or stone visualized. GALLBLADDER: Contains no stones, demonstrates no wall thickening or pericholecystic fluid. PANCREAS: The visualized portions are within normal limits. RIGHT KIDNEY: The right kidney is somewhat small and echogenic. CONCLUSION: Negative for gallstones. Small echogenic right kidney. Vikram Luz MD FACR on January 24, 2017 at 17:32 Board Certified Radiologist. This report was verified electronically.
== END 2017-01-24 17:57 | disposition home or self-care (01) ==
LOC: HOBED 12:52
DX: O23.592 Infection of other part of genital tract in pregnancy, second trimester (principal); Z3A.23 23 weeks gestation of pregnancy
CPT/HCPCS: 76705; 80053; 81001; 85027; 87210; 87491; 87591; 96374; 99285; J2405; J7120